=== PATIENT | male | born 1990 | race Caucasian/White ===

== ENCOUNTER 2017-11-15 03:13 | Emergency (ER) | payer OTHER ==
[2017-11-15] MEDS: DIPHTH,PERTUSS(ACELL),TET TOX 0.5 ML DISP.SYRIN. VAX IM (04:13)
[2017-11-15] MEDS: NEOMY/BACITR/POLYMYXIN OINT PACKET. TP (04:13)
[2017-11-15] MEDS: diphenhydrAMINE HCL 25 MG CAPSULE PO (04:14)
[2017-11-15] MEDS: DEXAMETHASONE 4 MG TABLET PO (04:14)
== END 2017-11-15 04:25 | disposition home or self-care (01) ==
LOC: ER 03:13
DX: R22.31 Localized swelling, mass and lump, right upper limb (principal); M79.641 Pain in right hand
CPT/HCPCS: 73130; 90471; 90715; 99284-25; J8540; Q0163

== ENCOUNTER 2021-07-11 22:25 | Emergency (ER) | payer BC, OTHER ==
[~2021-07-11] VITALS: Ht 162.6 cm; Wt 61.3 kg
[~2021-07-11 22:25] MED LIST: PRED-299 PO
[2021-07-11 22:59] LABS: BASO % 0 % (0-3); EOS # 0.5 x10^3/uL (0.0-0.7); EOS % 7 % (0-3); HEMATOCRIT 43.3 % (39.0-53.0); HEMOGLOBIN 14.8 g/dL (13.0-17.5); LYMPH # 2.6 x10^3/uL (1.0-4.8); LYMPH % 35 % (24-48); MEAN CORPUSCULAR HEMOGLOBIN 33 pg (25-35); MEAN CORPUSCULAR HGB CONC 34 g/dL (31-37); MEAN CORPUSCULAR VOLUME 95 fL (79-100); MONO # 0.6 x10^3/uL (0.0-1.1); MONO % 9 % (0-9); NEUT # 3.7 x10^3/uL (1.8-7.7); NEUT % 49 % (31-73); PLATELET COUNT 300 x10^3/uL (140-400); RED BLOOD COUNT 4.54 x10^6/uL (4.30-5.70); RED CELL DISTRIBUTION WIDTH 12.7 % (11.5-14.5); WHITE BLOOD COUNT 7.4 x10^3/uL (4.0-11.0)
--- NOTE | 2021-07-11 23:05 | PHYS DOC ---
Past Medical History Past Medical History: No Pertinent History, Depression (DAVIDTELMA ARCE MINT MACHINE OPERATOR) Past Surgical History: No Surgical History (TELMA GONGORA MINT MACHINE OPERATOR) Smoking Status: Current Every Day Smoker Alcohol Use: Occasionally Drug Use: None (FRANSISCATELMA Álvarez MINT MACHINE OPERATOR) General Adult EDM: Chief Complaint: SUICDAL IDEATION HPI: HPI: Patient is a 30 year old male with history of depression presenting to the ED today to be evaluated after a suicide attempt. Patient states he was depressed today, he states he decided to hang himself. He states he tied a rope around his neck in his garage, he states he was about to hang himself on the rafters of his garage then decided not to do it. He states he has previous history of suicide attempt by hanging. He states he is right now not suicidal. He states he had alcohol 1-1/2 bottles today. He also states a week or so ago he did marijuana and cocaine. (IMANMalcolmTELMA Álvarez MINT MACHINE OPERATOR) Review of Systems: Review of Systems: Constitutional: Denies fever or chills. [] Eyes: Denies change in visual acuity. [] HENT: Denies nasal congestion or sore throat. [] Respiratory: Denies cough or shortness of breath. [] Cardiovascular: Denies chest pain or edema. [] GI: Denies abdominal pain, nausea, vomiting, bloody stools or diarrhea. [] : Denies dysuria. [] Musculoskeletal: Denies back pain or joint pain. [] Integument: Denies rash. [] Neurologic: Denies headache, focal weakness or sensory changes. [] Endocrine: Denies polyuria or polydipsia. [] Lymphatic: Denies swollen glands. [] Psychiatric: Reports suicide attempt (TELMA GONGORA MINT MACHINE OPERATOR) Heart Score: C/O Chest Pain: N/A Risk Factors: Risk Factors: DM, Current or recent (<one month) smoker, HTN, HLP, family history of CAD, obesity. Risk Scores: Score 0 - 3: 2.5% MACE over next 6 weeks - Discharge Home Score 4 - 6: 20.3% MACE over next 6 weeks - Admit for Clinical Observation Score 7 - 10: 72.7% MACE over next 6 weeks - Early Invasive Strategies (TELMA GONGORA MINT MACHINE OPERATOR) C/O Chest Pain: No (ANASTASIYA JURADO MD) Allergies: Allergies: Allergies Coded Allergies Type Severity Reaction Last Updated Verified No Known Drug Allergies 11/15/17 No (TELMA GONGORA APRN) Physical Exam: PE: Constitutional: Well developed, well nourished, no acute distress, non-toxic appearance. [] HENT: Normocephalic, atraumatic, bilateral external ears normal, oropharynx moist, no oral exudates, nose normal. [] Eyes: PERRLA, EOMI, conjunctiva normal, no discharge. [] Neck: Normal range of motion, no tenderness, supple, no stridor. [] Cardiovascular:Heart rate regular rhythm, no murmur [] Lungs & Thorax: Bilateral breath sounds clear to auscultation [] Abdomen: Bowel sounds normal, soft, no tenderness, no masses, no pulsatile masses. [] Skin: Warm, dry, no erythema, no rash. [] Back: No tenderness, no CVA tenderness. [] Extremities: No tenderness, no cyanosis, no clubbing, ROM intact, no edema. [] Neurologic: Alert and oriented X 3, normal motor function, normal sensory function, no focal deficits noted. [] Psychologic: Affect normal, judgement normal, mood normal. [] (TELMA GONGORA APRN) Current Patient Data: Labs: Laboratory Tests Test 07/11/21 22:45 White Blood Count 7.4 x10^3/uL (4.0-11.0) Red Blood Count 4.54 x10^6/uL (4.30-5.70) Hemoglobin 14.8 g/dL (13.0-17.5) Hematocrit 43.3 % (39.0-53.0) Mean Corpuscular Volume 95 fL (79-100) Mean Corpuscular Hemoglobin 33 pg (25-35) Mean Corpuscular Hemoglobin Concent 34 g/dL (31-37) Red Cell Distribution Width 12.7 % (11.5-14.5) Platelet Count 300 x10^3/uL (140-400) Neutrophils (%) (Auto) 49 % (31-73) Lymphocytes (%) (Auto) 35 % (24-48) Monocytes (%) (Auto) 9 % (0-9) Eosinophils (%) (Auto) 7 % (0-3) H Basophils (%) (Auto) 0 % (0-3) Neutrophils # (Auto) 3.7 x10^3/uL (1.8-7.7) Lymphocytes # (Auto) 2.6 x10^3/uL (1.0-4.8) Monocytes # (Auto) 0.6 x10^3/uL (0.0-1.1) Eosinophils # (Auto) 0.5 x10^3/uL (0.0-0.7) Basophils # (Auto) 0.0 x10^3/uL (0.0-0.2) Laboratory Tests 07/11/21 22:45 (TELMA GONGORA MINT MACHINE OPERATOR) EKG: EK interpreted by Dr. Jurado sinus rhythm heart rate 71 no STEMI [] (TELMA GONGORA MINT MACHINE OPERATOR) Radiology/Procedures: Radiology/Procedures: [] (TELMA GONGORA APRN) Course & Med Decision Making: Course & Med Decision Making Pertinent Labs and Imaging studies reviewed. (See chart for details) This a 30-year-old male patient presented to the ED today to be evaluated for suicide attempt by hanging. Patient reports he had a rope tied around his neck but did not hang himself. He was put on 1:1 observation CBC, CMP with no acute findings. UDS-patient has not voided yet 2345 Adenike from the PAT in the ED evaluating patient. Patient requires Covid PCR test which is pending. He will be admitted pending results. (TELMA GONGORA APRN) Course & Med Decision Making 1800: Care assumed from practitioner Fransisca. Patient resting comfortably in no acute distress. He has been recommended for inpatient psychiatric placement which is pending at this time. Medically cleared. 0600: Pending placement at this time. Resting comfortably in no acute distress, verbalizes no new needs. Transition of care to Dr. Whelan. (ANASTASIYA JURADO MD) Course & Med Decision Making Patient was initially seen by the nurse practitioner yesterday, then was taken over by the night cleaner physician, Dr. Jurado. I assumed care at 0600 radha m jose raul. The patient has been resting comfortably, without complaint. The patient was seen by PAT team. The patient was accepted for admission at [facility]. He is voluntary for inpatient psychiatric admission. He has been medically stable and appropriate for transfer. (CRYSTAL WHELAN DO) Alejandra Disclaimer: Alejandra Disclaimer: This electronic medical record was generated, in whole or in part, using a voice recognition dictation system. (TELMA GONGORA APRN) Departure Departure Impression: Primary Impression: Suicide attempt [facility] Condition: STABLE Referrals: NO PCP (PCP) TELMA GONGORA APRN Jul 11, 2021 23:05 ANASTASIYA JURADO MD Jul 12, 2021 02:40 CRYSTAL WHELAN DO Jul 12, 2021 10:41
[2021-07-11 23:10] LABS: CALCIUM 9.5 mg/dL (8.5-10.1); CREATININE 1.2 mg/dL (0.7-1.3); GFR 72.1; POTASSIUM 3.9 mmol/L (3.5-5.1)
[2021-07-11 23:15] LABS: ACETAMIN < 2 mcg/ml (10-30); ETHANOL < 10 mg/dL (0-10); SALIC 3.4 mg/dL (2.8-20.0)
[2021-07-11 23:16] LABS: ALBUMIN 4.6 g/dL (3.4-5.0); ALBUMIN/GLOBULIN RATIO 1.3 (1.0-1.7); TOTAL BILIRUBIN 0.4 mg/dL (0.2-1.0); TOTAL PROTEIN 8.1 g/dL (6.4-8.2)
[2021-07-12] MEDS ORDERED: ACETAMINOPHEN 325 MG TABLET. PO PRN (00:45)
[2021-07-12 01:08] LABS: AMPHETAMINE/METHAMPHETAMINE NEG (NEG); BARBITURATES NEG (NEG); BENZODIAZEPINES NEG (NEG); CANNABINOIDS NEG (NEG); COCAINE POS (NEG); METHADONE NEG (NEG); OPIATES NEG (NEG); PHENCYCLIDINE NEG (NEG)
[2021-07-12 01:11] LABS: BACTERIA,URINE 0 /HPF (0-FEW); RBC,URINE RARE /HPF (0-2); WBC,URINE RARE /HPF (0-4)
--- NOTE | 2021-07-12 02:41 | EKG ---
[address] [place] [address] Test Date: 2021-07-11 Test Time: 22:49:15 Pat Name: ITALIA BAIG Department: Room: Gender: M Sales Management Trainee: : 1990 Requested By: TELMA GONGORA Order Number: [id number] Reading MD: Leonard Owens Measurements Intervals [place] Rate: 71 P: 60 RI: 132 QRS: 78 QRSD: 96 T: 36 QT: 342 QTc: 376 Interpretive Statements SINUS RHYTHM NO SPECIFIC ECG ABNORMALITIES RI6.01 No previous ECG available for comparison Electronically Signed On 07-15-2021 21:40:35 CDT by Leonard Owens
[2021-07-12] MEDS ORDERED: NICOTINE 21MG PATCH. TD SCH (11:45)
[2021-07-12 11:56] VITALS: BP 114/59
== END 2021-07-12 12:50 | disposition short-term general hospital (02) ==
LOC: ER 22:25 → 6 SOUTH 07-12 00:30 → UNDOADMIN 07-12 00:30 → ER 07-12 12:50
DX: T14.91XA Suicide attempt, initial encounter (principal); F32.9 Major depressive disorder, single episode, unspecified; Z20.822 Contact with and (suspected) exposure to COVID-19; F17.200 Nicotine dependence, unspecified, uncomplicated
CPT/HCPCS: 80053; 80307; 80329; 81001; 83690; 83735; 85025; 87426; 93005; 99285; C9803; G0480; U0003